=== PATIENT | female | born 1995 | race African-American/Black ===

== ENCOUNTER 2021-04-28 03:48 | Emergency (ER) | payer OTHER ==
[~2021-04-28] VITALS: Ht 157.5 cm; Wt 54.4 kg
[2021-04-28] MEDS ORDERED: OXYCODON-ACETA1 EACH (04:37)
[2021-04-28] MEDS ORDERED: PEPCID40 MG PO (08:31)
[2021-04-28] MEDS ORDERED: ZOFRAN8 MG PO (08:31)
[2021-04-28] MEDS ORDERED: PROTONIX40 MG PO (08:31)
== END 2021-04-28 08:52 | disposition home or self-care (01) ==
LOC: ER 03:48
DX: K29.70 Gastritis, unspecified, without bleeding (principal)